=== PATIENT | female | born 1965 | race Caucasian/White ===

== ENCOUNTER 2018-04-14 12:35 | Emergency (ER) | payer OTHER ==
[~2018-04-14] VITALS: Ht 162.6 cm; Wt 118.0 kg
[~2018-04-14 12:35] MED LIST: ATENOLOL50 MG PO; CIPRODEX OTIC7.5 ML RIGHT EAR; COZAAR100 MG PO; ERGOCALCIF50000 UNIT PO; FLEXERIL10 MG PO; FOLIC ACID1 MG PO; KLOR-CON M2020 MEQ PO; LASIX20 MG PO; METFORMIN HCL500 MG PO; MS CONTIN,ORAMO60 MG PO; OXYCODONE HCL30 MG PO; PROAIR RESPICL90 MCG IH; ROCEPHIN 2 GM VI2 GM IV
[2018-04-14 18:01] VITALS: BP 110/81
== END 2018-04-14 18:04 | disposition home or self-care (01) ==
LOC: EME 12:35
DX: S62.306A Unspecified fracture of fifth metacarpal bone, right hand, initial encounter for closed fracture (principal); S52.122A Displaced fracture of head of left radius, initial encounter for closed fracture; S61.206A Unspecified open wound of right little finger without damage to nail, initial encounter; S00.81XA Abrasion of other part of head, initial encounter; S50.311A Abrasion of right elbow, initial encounter; S60.811A Abrasion of right wrist, initial encounter; S60.511A Abrasion of right hand, initial encounter; W10.9XXA Fall (on) (from) unspecified stairs and steps, initial encounter; Y93.01 Activity, walking, marching and hiking; Z23 Encounter for immunization
CPT/HCPCS: 70450; 70486; 73030; 73080; 73130; 99281; 99285

== ENCOUNTER 2018-04-15 22:14 | Emergency (ER) | payer OTHER ==
[~2018-04-15] VITALS: Ht 162.6 cm; Wt 110.4 kg
[2018-04-16] MEDS ORDERED: TOBREX5 ML RIGHT EYE (00:21)
[2018-04-16] MEDS ORDERED: ERYTHROMYC1 APPLICAT RIGHT EYE (00:21)
[2018-04-16 01:12] VITALS: BP 119/59
== END 2018-04-16 01:13 | disposition home or self-care (01) ==
LOC: EME 22:14
DX: S05.01XA Injury of conjunctiva and corneal abrasion without foreign body, right eye, initial encounter (principal); W10.9XXA Fall (on) (from) unspecified stairs and steps, initial encounter; I11.0 Hypertensive heart disease with heart failure; I50.9 Heart failure, unspecified; E11.9 Type 2 diabetes mellitus without complications; Z79.84 Long term (current) use of oral hypoglycemic drugs
CPT/HCPCS: 99281; 99283